=== PATIENT | female | born 1960 | race Caucasian/White ===

== ENCOUNTER 2020-04-29 11:12 | Emergency (ER) | payer BC, SELFPAY ==
[2020-04-29 11:23] VITALS: BP 155/87; PULSE 83; RESP 16; TEMP 36.4; O2SAT 97
--- NOTE | 2020-04-29 11:44 | PC.NURSE ---
PER CAREER INFORMATION SPECIALIST, NO URINE CULTURE NEEDED.
--- NOTE | 2020-04-29 11:56 | ED.BACK ---
HPI - Back Pain/Injury General Chief Complaint: Urogenital-Female Stated Complaint: uti Time Seen by Provider: 04/29/20 11:50 Source: patient and RN notes reviewed Mode of arrival: ambulatory Limitations: no limitations History of Present Illness HPI Narrative: Patient presents today complaining of a 4-day history of right mid to low back pain. States that for 2 days prior she also had some dysuria, but this has resolved. She has been using Tylenol and a heating pad and currently rates her pain 3/10. Reports history of UTIs and pyelonephritis. No [id number] interventions are Providing relief. Denies radiation of the pain. Denies numbness or tingling in the extremities. Denies any loss of bowel or bladder control. MD elicited complaint: back pain Related Data Allergies Allergy/AdvReac Type Severity Reaction Status Date / Time tramadol Allergy Unknown RASH Verified 08/25/17 13:43 Review of Systems Review of Systems: Narrative: CONSTITUTIONAL: Denies body aches, fever, chills, or sweats. EYES: Denies visual changes, redness, or discharge. ENT: Denies rhinorrhea, congestion, sore throat, or otalgia. CARDIOVASCULAR: Denies chest pain, palpitations, or edema. RESPIRATORY: Denies cough or dyspnea. GASTROINTESTINAL: Denies abdominal pain, nausea, vomiting, or diarrhea. GENITOURINARY: Denies dysuria or hematuria. SKIN: Denies rash, itching, or wounds. MUSCULOSKELETAL: Denies joint pain, or myalgia.+Back pain NEUROLOGIC: Denies headache, numbness, tingling, or weakness. PSYCH: Denies depression or anxiety. [facility] Past Medical History Medical History (Updated 04/29/20 @ 12:02 by Julieth Catalan, [facility], ) GERD (gastroesophageal reflux disease) Surgical History Surgical History (Updated 04/29/20 @ 11:58 by Julieth Catalan, [facility], ) H/O tubal ligation Comments At time of signature, I have reviewed and agree with nursing past medical, surgical, social and family history unless otherwise noted. Please see nursing chart for further information. There is no relevant family history pertinent to the presenting complaint Exam Narrative: Exam Narrative: GENERAL: Well-appearing, well-nourished, and in no acute distress. HEAD: Normocephalic, atraumatic. EYES: EOMI. No redness or drainage. Conjunctivae normal. ENT: Mucous membranes pink and moist. NECK: Normal AROM. Supple. No lymphadenopathy. CHEST: No respiratory distress. MUSCULOSKELETAL: No bony tenderness of the spine. Right lower thoracic paraspinal muscle tenderness and palpable spasms. These spasms extend to the lower lumbar area as well. Distal sensation intact. Capillary refill normal.Pain increases with movement of the back. EXTREMITIES: Normal range of motion. No edema. SKIN: Warm, dry, no rash. Capillary refill normal. Normal skin turgor. NEURO: No focal deficits. Alert and oriented x3. Gait steady. PSYCH: Normal affect. No signs of depression or anxiety. Course Vital Signs Vital signs: Vital Signs Temperature 97.6 F 04/29/20 11:23 Pulse Rate 83 04/29/20 11:23 Respiratory Rate 16 04/29/20 11:23 Blood Pressure 155/87 H 04/29/20 11:23 Pulse Oximetry 97 04/29/20 11:23 Temperature 97.6 F 04/29/20 11:23 Pulse Rate 83 04/29/20 11:23 Respiratory Rate 16 04/29/20 11:23 Blood Pressure 155/87 H 04/29/20 11:23 Pulse Oximetry 97 04/29/20 11:23 Reviewed. Pt has been instructed to follow up with her PCP regarding her elevated blood pressure today. MDM - Back Pain/Injury Differential Diagnosis Differential diagnosis: Likely lumbar radiculopathy, sciatica, strain of lumbar region, pyelonephritis, thoracic back pain and other (UTI) Lab Data Labs: Urine Glucose Negative Reference Range: Negative Urine Bilirubin Negative Reference Range: Negative Urine Ketone Negative Reference Range: Negative Urine Specific [place] 1.015 Reference Rang
== END 2020-04-29 12:10 | disposition home or self-care (01) ==
PROVIDERS: Emergency Provider Nurse Practitioner; PCP Nurse Practitioner Family
DX: M62.830 Muscle spasm of back (principal)
CPT/HCPCS: 81003; 99213; G0463

== ENCOUNTER 2023-01-03 14:41 | Emergency (ER) | payer BC, SELFPAY ==
--- NOTE | 2023-01-03 14:42 | ED.EAR ---
HPI - Ear Problem General Chief complaint: Ear Stated complaint: Ear ache Time Seen by Provider: 01/03/23 14:42 Source: patient Mode of arrival: ambulatory Limitations: no limitations History of Present Illness HPI Narrative: Amalia is a 62-year-old female patient presenting to the clinic today with complaints of earache x1 month. She reports will she was initially having some dizziness with the ear discomfort however the dizziness has improved. She does have ENT appointment in another month. Denies any dizziness today in the clinic but is having right ear pain that is radiating into the right neck. Related Data Home Medications Medication Instructions Recorded Confirmed aspirin 81 mg chewable tablet 81 mg PO DAILY 01/28/22 01/03/23 atorvastatin 80 mg tablet 80 mg PO DAILY 01/28/22 01/03/23 famotidine 20 mg tablet 20 mg PO QHS 01/28/22 01/03/23 metoprolol succinate 25 mg 12.5 mg PO DAILY 01/28/22 01/03/23 tablet,extended release 24 hr Allergies Allergy/AdvReac Type Severity Reaction Status Date / Time tramadol Allergy Unknown RASH Verified 01/28/22 13:46 Review of Systems Review of Systems: Pertinent positives per HPI. Patient denies any fever, chills, rash, headache, visual changes, dizziness, cough, runny nose, sore throat, shortness of breath, chest pain, palpitations, nausea, vomiting, diarrhea, constipation, abdominal pain, or any urinary issues. ON LICENSE OF [facility] Past Medical History Medical History Acute rheumatic arthritis GERD (gastroesophageal reflux disease) High cholesterol Hypertension Surgical History Surgical History H/O tubal ligation History of appendectomy History of History of carpal tunnel surgery bilateral History of eye surgery Family History Family History Father Diabetes mellitus Malignant tumor of urinary bladder Sibling Diabetes mellitus sister Mother Hypertension Heart disease Anxiety disorder Social History Social History Smoking status: Former smoker Alcohol intake: current Alcohol use details: rarely Substance use: never Substance use type: does not use Living arrangements: other Additional living arrangements comments: Occupation/Education: other Additional occupation/education comments: raising grandson Gender identity (if verbalized by the patient): Female Sexual Orientation (if Verbalized by the Patient): Straight or Heterosexual Comments At the time of my signature, I reviewed and agree with the nursing past medical, surgical, social, and family history. There is no relevant family history pertinent to the patient complaint. Exam Narrative: General: Well-developed, well nourished, in no apparent distress Head: Normocephalic, atraumatic Eyes: Pupils equally round and reactive to light bilaterally, EOM intact, sclera and conjunctive clear, no discharge, lids normal Ears: Left TM intact and clear, left ear canal clear, right ear canal with moderate cerumen impaction blocking visualization of the TM, ear irrigation was performed and cerumen impaction removed successfully, right TM intact with mild bulging without redness, no drainage, tenderness to palpation over the right eustachian tube, grossly hearing normal. Nose: Nares patent, clear discharge, no inflammation, no sinus tenderness. Mouth: Oropharynx without lesions or masses, good dentition, MMM. Neck: Supple, trachea midline, no enlargement of anterior or posterior cervical nodes, no thyroid masses or goiter palpable. Cardio: Regular rate and rhythm, s1 and s2 normal, no murmur appreciated. Resp: Clear to auscultation bilaterally anteriorly and posteriorly, no rhonchi, rales, wheezing or rubs Course Course Emerg
[2023-01-03 14:49] VITALS: BP 156/92; PULSE 78; RESP 16; TEMP 36.6; O2SAT 98
== END 2023-01-03 15:07 | disposition home or self-care (01) ==
PROVIDERS: Emergency Provider Nurse Practitioner Family; PCP Internal Medicine
DX: H61.21 Impacted cerumen, right ear (principal); H69.81 Other specified disorders of Eustachian tube, right ear; I10 Essential (primary) hypertension; Z79.82 Long term (current) use of aspirin; Z87.891 Personal history of nicotine dependence
CPT/HCPCS: 69209; 99213; G0463

== ENCOUNTER 2023-04-04 17:37 | Emergency (ER) | payer BC, SELFPAY ==
[2023-04-04 17:53] VITALS: BP 119/75; PULSE 73; RESP 16; TEMP 36.6; O2SAT 97
--- NOTE | 2023-04-04 18:09 | ED.SKABFB ---
HPI - Skin/Abscess/Foreign Bdy General Chief complaint: Skin/Abscess/Foreign Body Stated complaint: poss shingles on back Source: patient and RN notes reviewed History of Present Illness HPI narrative: 62 yo F presents to urgent care wit complaints of an itchy patch to her left mid back. Pt states this has been going on for the last week and reports burning to the area. Pt states she went on vacation this past week and had no change. An anti-itch cream was applied once without much relief. Pt denies any numbness or tingling. Denies any fevers or vomiting. Pt states she wears the same bra every day and hasn't washed it in about 1 week. Denies any new detergents. Related Data Home Medications Medication Instructions Recorded Confirmed aspirin 81 mg chewable tablet 81 mg PO DAILY 01/28/22 04/04/23 allopurinol 100 mg tablet 100 mg PO DAILY 04/04/23 04/04/23 atorvastatin 40 mg tablet 40 mg PO DAILY 04/04/23 04/04/23 calcitriol 0.25 mcg capsule 0.25 mcg PO DAILY 04/04/23 04/04/23 cetirizine 10 mg tablet 10 mg PO DAILY 04/04/23 04/04/23 ergocalciferol (vitamin D2) 1,250 1,250 mcg PO WEEKLY 04/04/23 04/04/23 mcg (50,000 unit) capsule losartan 25 mg tablet 25 mg PO DAILY 04/04/23 04/04/23 metoprolol succinate 25 mg 25 mg PO DAILY 04/04/23 04/04/23 tablet,extended release 24 hr Allergies Allergy/AdvReac Type Severity Reaction Status Date / Time tramadol Allergy Unknown RASH Verified 04/04/23 18:19 ciprofloxacin [From Cipro] AdvReac Intermediate Itching Verified 04/04/23 18:19 Review of Systems Review of Systems: Pertinent positives and pertinent negatives per HPI. [facility] Past Medical History Medical History Acute rheumatic arthritis GERD (gastroesophageal reflux disease) High cholesterol Hypertension Surgical History Surgical History H/O tubal ligation History of appendectomy History of History of carpal tunnel surgery bilateral History of eye surgery Family History Family History Father Diabetes mellitus Malignant tumor of urinary bladder Sibling Diabetes mellitus sister Mother Hypertension Heart disease Anxiety disorder Social History Social History Smoking status: Former smoker Alcohol intake: current Alcohol use details: rarely Substance use: never Substance use type: does not use Living arrangements: other Additional living arrangements comments: Occupation/Education: other Additional occupation/education comments: raising grandson Gender identity (if verbalized by the patient): Female Sexual Orientation (if Verbalized by the Patient): Straight or Heterosexual Comments At the time of my signature, I reviewed and agree with the nursing past medical, surgical, social, and family history. There is no relevant family history pertinent to the patient complaint. Exam Narrative: GENERAL: This is a well-nourished, well-developed patient, in no apparent distress. HEAD: normocephalic, atraumatic. EYES: Sclera clear/white. Vision is grossly intact. EARS: External ears normal, auditory canals clear and without drainage. Hearing grossly intact. NOSE: External nose normal with no obvious nasal discharge, nares without redness, no rhinorrhea. THROAT: Mucous membranes moist, posterior pharynx clear. NECK: Neck supple, non-tender without lymphadenopathy, masses or thyromegaly. CARDIOVASCULAR: Regular rate RESPIRATORY: No respiratory distress SKIN: Area of erythema with a couple dried scabs to left upper back; at bra line; approximately 4 cm x 4 cm. NEURO: awake, alert, and oriented to person, place and time. There were no obvious focal neurologic abnormalities. EXTREMITIES: No clubbing, cyanosis, or edema
== END 2023-04-04 18:25 | disposition home or self-care (01) ==
PROVIDERS: Emergency Provider Nurse Practitioner Family; PCP Internal Medicine
DX: L30.9 Dermatitis, unspecified (principal); Z87.891 Personal history of nicotine dependence; K21.9 Gastro-esophageal reflux disease without esophagitis; E78.00 Pure hypercholesterolemia, unspecified; I10 Essential (primary) hypertension; Z79.82 Long term (current) use of aspirin
CPT/HCPCS: 99213; G0463